=== PATIENT | male | born 1945 | race Caucasian/White ===

== ENCOUNTER 2024-03-01 02:29 | Emergency (ER) | payer MEDICARE, SELFPAY ==
[2024-03-01 02:31] VITALS: BP 152/69
[2024-03-01 02:56] VITALS: BMI 23.0
[2024-03-01 03:26] LABS: % Basophils 0.8 % (0-2); % Eosinophils 2.2 % (0-6); % Immature Granulocytes 0.2 % (0-0.5); % Lymphocytes 26.6 % (20.5-51.1); % Monocytes 12.6 % (1.7-9.3); % Neutrophils 57.6 % (42.2-75.2); Absolute Eosinophils 0.1 10^3/uL (0-0.7); Absolute Lymphocytes 1.4 10^3/uL (1.2-3.4); Absolute Monocytes 0.6 10^3/uL (0.1-0.6); Absolute Neutrophils 2.9 10^3/uL (1.4-6.5); Hematocrit 39.1 % (39.0-52.0); Hemoglobin 13.2 g/dL (13.0-18.0); Mean Corp Hgb Conc. 33.8 g/dL (33.0-37.0); Mean Corpuscular Hgb 32.8 pg (27.0-31.0); Mean Corpuscular Volume 97.3 fL (80.0-94.0); Mean Platelet Volume 10.7 fL (7.4-10.4); Nucleated Red Blood Cells % 0 % (-); Platelet Count 231 10^3/uL (130-400); Red Blood Cell Count 4.02 10^6/uL (4.70-6.10); Red Cell Dist. Width 12.9 % (11.5-14.5); White Blood Cell Count 5.1 10^3/uL (4.8-10.8)
[2024-03-01 03:27] VITALS: BP 117/63
--- NOTE | 2024-03-01 03:28 | ED.GENMED ---
History of Present Illness
<TINA Gonzalez - Last Filed: 03/01/24 06:10>
General
Chief Complaint: Abdominal Pain
Source: patient
Time Seen by Provider: 03/01/24 03:19
Travel History
Have you had any contact with someone who has COVID-19?: No
Do you have any symptoms of coronavirus? Fever > 100 degrees, chills, cough, shortness of breath, sore throat, loss of taste or smell, muscle aches, or headache?: No
History of Present Illness
History of Present Illness:
This is a 78 yo male PMH appendectomy, bladder removal, prostatectomy, HTN presenting for abdominal pain. He states this pain is focused in the LLQ and the suprapubic area. He states he noticed this pain 3 hours ago and rated it as nonradiating,
'gassy' 6/10 pain. The pain has improved since arrival, stating it is now a 3/10. He describes associated diarrhea which started this morning.
He denies nausea, vomiting, chest pain, SOB, constipation, hematochezia.
Past History
<TINA Gonzalez - Last Filed: 03/01/24 06:10>
Past History
ED Past Medical History: GERD, HTN, Hypercholesterolemia, NIDDM, Renal failure (Chronic kidney disease creatinine generally runs 1.3 occasionally 1.5) and Other (Bladder cancer, Lee's esophagus, chronic kidney disease stage III, DVT)
ED Past Surgical History: Appendectomy, Urological (cecectomy with neobladder, prostatectomy) and Other ([place] filter with eventual removal)
Social History
Tobacco: Former smoker
Alcohol: None
Personal:
Living: with family
Employment: Retired
Family History
Family History: Other (Noncontributory)
Review of Systems
<TINA Gonzalez - Last Filed: 03/01/24 06:10>
Review of Systems
Allergies reviewed?: Yes
Constitutional: Reports no symptoms
Respiratory: Reports no symptoms
Cardiac: Reports no symptoms
ABD/GI: Reports abdominal pain and diarrhea
Phy Exam
<TINA Gonzalez - Last Filed: 03/01/24 06:10>
General Physical Exam
General Presentation: well appearing
General age: appears stated age
General Skin: warm and dry
General Habitus: normal
General Mental: alert
General Hydration: appears well hydrated
Gastrointestinal Exam
Gastrointestinal Exam: soft, no organomegaly, no pulsatile mass, non distended and no masses
Palpation: left lower quadrant: Minimal tenderness
Neurological Exam
Neurological Exam: alert and oriented x3
Course
<TINA Gonzalez - Last Filed: 03/01/24 06:10>
Orders/Labs/Results
Orders:
Orders
03/01/24 03:10
CMP [Comprehensive Metabolic Panel] Urgent
Complete Blood Count/With Diff Urgent
Lipase Urgent
Comment: ADD ON
03/01/24 04:10
Add On- LAB Urgent
Tests Added?: lipase
03/01/24 04:31
CT Abd/pel Without Iv Or Oral Urgent
Comment: per pt not supposed to be injected due to kid issues, ok to change per DR
Reason For Exam: LLQ abd pain, hx of bladder sx
Abnormal Lab Results
03/01/24
03:10
RBC 4.02 L 10^6/uL
(4.70-6.10)
MCV 97.3 H fL
(80.0-94.0)
MCH 32.8 H pg
(27.0-31.0)
MPV 10.7 H fL
(7.4-10.4)
Monocytes % 12.6 H %
(1.7-9.3)
BUN 37 H mg/dl
(9-20)
Glucose 166 H mg/dl
(70-99)
Alkaline Phosphatase 131 H U/L
(38-126)
03/01/24 03:10
03/01/24 03:10
Vital Signs
Initial and Last Documented VS:
Initial Vital Signs
Temp Pulse Resp BP Pulse Ox
97.8 F 65 18 152/69 98
03/01/24 02:31 03/01/24 02:31 03/01/24 02:31 03/01/24 02:31 03/01/24 02:31
Last Documented Vital Signs
Temp Pulse Resp BP Pulse Ox
97.8 F 65 14 114/62 97
03/01/24 02:31 03/01/24 04:30 03/01/24 04:30 03/01/24 04:00 03/01/24 04:30
<Elias Birmingham, DO - Last Filed: 03/01/24 05:40>
Orders/Labs/Results
Orders:
Orders
03/01/24 03:10
CMP [Comprehensive Metabolic Panel] Urgent
Complete Blood Count/With Diff Urgent
Lipase Urgent
Comment: ADD ON
03/01/24 04:10
Add On- LAB Urgent
Tests Added?: lipase
03/01/24 04:31
CT Abd/pel Without Iv Or Oral Urgent
Comment: per pt not supposed to be injected due to kid issues, ok to change per DR
Reason For Exam: LLQ abd pain, hx of bladder sx
Abnormal Lab Results
03/01/24
03:10
RBC 4.02 L 10^6/uL
(4.70-6.10)
MCV 97.3 H fL
(80.0-94.0)
MCH 32.8 H pg
(27.0-31.0)
MPV 10.7 H fL
(7.4-10.4)
Monocytes % 12.6 H %
(1.7-9.3)
BUN 37 H mg/dl
(9-20)
Glucose 166 H mg/dl
(70-99)
Alkaline Phosphatase 131 H U/L
(38-126)
03/01/24 03:10
03/01/24 03:10
Vital Signs
Initial and Last Documented VS:
Initial Vital Signs
Temp Pulse Resp BP Pulse Ox
97.8 F 65 18 152/69 98
03/01/24 02:31 03/01/24 02:31 03/01/24 02:31 03/01/24 02:31 03/01/24 02:31
Last Documented Vital Signs
Temp Pulse Resp BP Pulse Ox
97.8 F 65 14 114/62 97
03/01/24 02:31 03/01/24 04:30 03/01/24 04:30 03/01/24 04:00 03/01/24 04:30
<TINA Gonzalez - Last Filed: 03/01/24 06:10>
MDM/Problems Addressed
Differential Diagnosis Includes:
Diverticulitis
-WBC WNL
Volvulus
Bowel Obstruction
-Patient has a surgical history significant for a 'neobladder' procedure
MDM/Problems Addressed:
Abdominal CT
<TINA Gonzalez - Last Filed: 03/01/24 06:10>
*Critical Care Note
Total Time (30-74mins, 75-104mins- exclusive of procedures): Not Applicable
<Elias Birmingham DO - Last Filed: 03/01/24 05:40>
Update Note
Update Note:
CT ABDOMEN/PELVIS WITHOUT CONTRAST
IMPRESSION:
1. Mildly prominent loops of small bowel within the left abdomen, may represent ileus or enteritis. Fluid throughout the colon, may represent underlying diarrheal state.
2. No bowel obstruction. Cholelithiasis without evidence of cholecystitis. Likely status post appendectomy
Incidentals:
-Severe left hydronephrosis, unchanged from prior. Right-sided parapelvic cysts.
- No obstructive uropathy.
-Left hepatic hypodensities, too small to characterize
- No abdominal aortic aneurysm.
-Moderate hiatal hernia
- No acute abnormality within the visualized lungs.
- No acute abnormality within the visualized soft tissues.
Case finalized on Mar 01 2024 5:24AM ET
ED Attending Note
<TINA Gonzalez - Last Filed: 03/01/24 06:10>
-
Portions of this chart may have been created with voice recognition software.� Occasional wrong word or��sound alike� substitutions may have occurred due to the inherent limitations of voice recognition software.
Discharge Plan
Departure
Patient Disposition: Home (Routine Discharge)
Date of Disposition: 03/01/24
Time of Disposition: 06:00
Patient with high blood pressure during this ER visit?: No
Condition: Good
Discharge Problem:
Enteritis, Abdominal pain
Instructions: Viral gastroenteritis in adults, Abdominal Pain
Prescriptions:
No Action
atorvastatin 10 MG tablet
20 mg PO DAILY
esomeprazole magnesium [Nexium] 40 MG capsule,delayed release(DR/EC)
40 mg PO DAILY
olmesartan [Benicar] 5 MG tablet
15 mg PO DAILY
L.acidoph, paracasei,B. lactis 1 EACH capsule
1 tab PO DAILY
Multivitamin
1 tab PO DAILY
olopatadine 0.1 % Drops
1 drp OPHTHALMIC (EYE) BID
fluticasone propionate [Flonase] 50 mcg/actuation [place],Suspension
1 spray INTRANASAL DAILY
metformin 500 mg Tablet Extended Release 24 Hr
500 mg PO TID
Vitamin B12 Sublingual
2,500 mcg sublingual .2X PER WK
ipratropium bromide 42 mcg (0.06 %) [place],Non-Aerosol
1 spray INTRANASAL DAILY
Referrals:
Julio Breaux MD [Family Provider] -
Activity Restrictions/Additional Instructions:
It was a pleasure meeting you and taking part in your care. We hope for your continued healing and wellness.
Please read discharge instructions in their entirety. However, they are for general education and may not describe your exact diagnosis at discharge. Information on your ER visit and medical conditions were discussed with you along with appropriate
follow up information...
If indicated, please take your medications as instructed and indicated on discharge paperwork.
Please schedule a follow up appointment as directed. Call to schedule an appointment
Please return to the emergency department with ANY change in, persisting, or worsening of symptoms. If any of your symptoms do not improve, or persist, or become more severe within 6-12 hours, please return to the emergency department for further
care.
Please return to the emergency department if you develop a headache, neck pain/stiffness, fever greater than 100.4F, chest pain, shortness of breath, persistent nausea, vomiting, slurred speech, difficulty walking, numbness/tingling, weakness, signs
of infection or any other symptoms that are worrisome to you.
If you have any questions or concerns please do not hesitate to call the Hospital at or E-mail me directly at [email or web address]
Interventions
Interventions:
*Risk Screen - Suicide Last Done: 03/01/24 02:31
*General Assessment Last Done: 03/01/24 02:31
*Neglect/Abuse Screening Last Done: 03/01/24 02:31
ED- Fall Risk Assessment Last Done: 03/01/24 02:56
*ED COVID-19 Vaccine History Last Done: 03/01/24 02:39
BI-Kqpxdv-Odhrjqrjng Assessment Last Done: 03/01/24 02:56
Discharge Date and Time
Print Language: PASHTO
[2024-03-01 03:43] LABS: ALT (SGPT) 18 U/L (0-50); AST (SGOT) 26 U/L (17-59); Albumin 4.1 g/dl (3.5-5.0); Alkaline Phosphatase 131 U/L (38-126); Blood Urea Nitrogen 37 mg/dl (9-20); Calcium 10.1 mg/dl (8.4-10.2); Carbon Dioxide 23 mmol/L (22-30); Chloride 107 mmol/L (98-107); Estimated Creatinine Clearance 43 ml/min; Glucose 166 mg/dl (70-99); Potassium 4.4 mmol/L (3.5-5.1); Sodium 139 mmol/L (135-145); Total Bilirubin 0.7 mg/dl (0.2-1.3); Total Protein 6.7 g/dl (6.3-8.2); eGFR 55.88
[2024-03-01 04:00] VITALS: BP 114/62
[2024-03-01 04:53] LABS: Lipase 134 U/L (23-300)
[2024-03-01 06:30] VITALS: BP 129/78
== END 2024-03-01 06:35 | disposition home or self-care (01) ==
LOC: EMR 02:29
PROVIDERS: EMERGENCY PHYSICIAN Student in an Organized Health Care Education/Training Program; FAMILY PHYSICIAN Family Medicine
DX: K52.9 Noninfective gastroenteritis and colitis, unspecified (principal); R10.32 Left lower quadrant pain; K21.9 Gastro-esophageal reflux disease without esophagitis; I12.9 Hypertensive chronic kidney disease with stage 1 through stage 4 chronic kidney disease, or unspecified chronic kidney disease; E11.22 Type 2 diabetes mellitus with diabetic chronic kidney disease; N18.30 Chronic kidney disease, stage 3 unspecified; E78.00 Pure hypercholesterolemia, unspecified; Z85.51 Personal history of malignant neoplasm of bladder; Z86.718 Personal history of other venous thrombosis and embolism; Z87.19 Personal history of other diseases of the digestive system; Z87.891 Personal history of nicotine dependence; Z90.49 Acquired absence of other specified parts of digestive tract; Z90.79 Acquired absence of other genital organ(s)
CPT/HCPCS: 99284; 74176; 80053; 83690; 85025

== ENCOUNTER → 2024-03-22 11:02 | Outpatient (REF) | payer MEDICARE, SELFPAY | LOC: HWRCS 11:02 | PROVIDERS: ATTENDING PHYSICIAN Internal Medicine Cardiovascular Disease; FAMILY PHYSICIAN Family Medicine | DX: R06.09 Other forms of dyspnea (principal); E11.9 Type 2 diabetes mellitus without complications | CPT/HCPCS: 93306 ==

== ENCOUNTER → 2024-04-12 08:28 | Outpatient (REF) | payer MEDICARE, SELFPAY | LOC: DHCBC/DCA 08:28 | PROVIDERS: ATTENDING PHYSICIAN Internal Medicine Cardiovascular Disease; FAMILY PHYSICIAN Family Medicine | DX: R06.09 Other forms of dyspnea (principal); E11.9 Type 2 diabetes mellitus without complications | CPT/HCPCS: 78452; 93017; A9500 ==

== ENCOUNTER → 2024-07-27 11:26 | Outpatient (REF) | payer MEDICARE, SELFPAY | LOC: HWRAD 11:26 | PROVIDERS: ATTENDING PHYSICIAN Student in an Organized Health Care Education/Training Program; FAMILY PHYSICIAN Family Medicine | DX: K52.9 Noninfective gastroenteritis and colitis, unspecified (principal) | CPT/HCPCS: 74019 ==

== ENCOUNTER → 2024-09-06 06:25 | Day surgery (SDC) | payer MEDICARE, SELFPAY ==
[2024-09-06 13:20] LABS: Glucose - Point of Care 67 mg/dl (70-99)
== END ==
LOC: GI 06:25
PROVIDERS: ATTENDING PHYSICIAN Student in an Organized Health Care Education/Training Program
DX: D12.2 Benign neoplasm of ascending colon (principal); D12.3 Benign neoplasm of transverse colon; D17.79 Benign lipomatous neoplasm of other sites; D12.8 Benign neoplasm of rectum; K57.30 Diverticulosis of large intestine without perforation or abscess without bleeding; K64.8 Other hemorrhoids; K52.9 Noninfective gastroenteritis and colitis, unspecified; K22.70 Barrett's esophagus without dysplasia; K29.80 Duodenitis without bleeding; K44.9 Diaphragmatic hernia without obstruction or gangrene; K31.7 Polyp of stomach and duodenum
CPT/HCPCS: 45385; 45380; 43239; 88305; 82962; 88342

== ENCOUNTER → 2024-10-31 13:40 | Outpatient (REF) | payer MEDICARE, SELFPAY | LOC: HWRCS 13:40 | PROVIDERS: ATTENDING PHYSICIAN Internal Medicine Cardiovascular Disease; FAMILY PHYSICIAN Family Medicine | DX: I07.1 Rheumatic tricuspid insufficiency (principal); I77.819 Aortic ectasia, unspecified site | CPT/HCPCS: 93306 ==

== ENCOUNTER → 2025-04-05 12:34 | Outpatient (REF) | payer MEDICARE, SELFPAY | LOC: RCS 12:34 | PROVIDERS: ATTENDING PHYSICIAN Physician Assistant; FAMILY PHYSICIAN Family Medicine | DX: R06.09 Other forms of dyspnea (principal); I10 Essential (primary) hypertension | CPT/HCPCS: 93306 ==